=== PATIENT | female | born 1970 | race African-American/Black ===

== ENCOUNTER → 2019-03-03 09:48 | Outpatient (CLI) | payer OTHER, SELFPAY ==
--- NOTE | 2019-03-03 09:52 | MM_ITS ---
PROCEDURE: MM DIG SC MAMM IMPLANT BI with 3D tomosynthesis CLINICAL INDICATION: SCREENING COMPARISON: MG SCREENING MAMMOGRAM from 12/06/2011 MG SCREENING MAMMOGRAM from 01/28/2013 MG SCREENING MAMMOGRAM from 03/24/2014 TECHNIQUE: Standard CC and MLO images were obtained along with implant displaced images and with 3D tomosynthesis. FINDINGS: There are bilateral retro mammary implants. There is dense fibroglandular tissue bilaterally. No discrete mass or malignant-appearing microcalcification is evident. Incidental note is made of some coarse calcification the right implant anteriorly. There are multiple bilateral radial folds IMPRESSION: BI-RAD Category: 1 Negative FOLLOW-UP: 1YR 1 Year Follow-up (A letter has been sent to the patient regarding results of the study.) Dictated by: Zay Santoyo MD 03/08/2019 18:33 Electronically signed by Zay Santoyo MD in [place] 03/08/2019 18:33
== END ==
PROVIDERS: PCP Nurse Practitioner Women's Health; Referring Provider Nurse Practitioner Women's Health; Visit Provider Nurse Practitioner Women's Health
DX: Z12.39 Encounter for other screening for malignant neoplasm of breast (principal)
CPT/HCPCS: 77063; 77067